=== PATIENT | female | born 1945 | race Caucasian/White ===

== ENCOUNTER 2016-11-20 05:41 | Day surgery (SDC) | payer BC, MEDICARE ==
[~2016-11-20] VITALS: Ht 162.6 cm; Wt 36.9 kg
[~2016-11-20 05:41] MED LIST: ACETAMINOPHEN500 M1 PO; COMBIVENT RESPIM4 GM INH; INSULIN PEN SC; K-TAB10 MEQ PO; LANTUS SOL100 UNIT/1; LANTUS SOL100 UNIT/1 SC; LOPRESSOR50 MG PO; LOTENSIN20 MG PO; NOVOLOG100 U/M1 SC; PLAVIX75 MG PO; PRILOSEC20 MG PO; REMERON15 MG PO; TOPROL XL50 MG PO; TYLENOL W/CODEI1 TAB PO; ULTRAM50 MG; XANAX0.5 MG PO; ZANAFLEX2 M1 PO; ZENPEP DR 20,01 EACH PO
[2016-11-20 06:47] LABS: BASOPHILS 0.4 % (0.0-2.0); EOSINOPHILS 0.2 % (0-7); HEMATOCRIT 36.8 % (36.0-48.0); HEMOGLOBIN 11.6 g/dL (12-16); IMMATURE GRANULOCYTES 0.2 % (0-5); LYMPHOCYTES 24.9 % (15-50); MCH 29.2 pg (26.0-34.0); MCHC 31.5 g/dL (31.0-37.0); MCV 92.7 fL (80.0-100.0); MEAN PLATELET VOLUME 10.4 fL (7.4-10.4); MONOCYTES 5.2 % (2-11); NEUTROPHILS 69.1 % (40-80); PLATELET COUNT 253 10x3/uL (130-400); RBC 3.97 10x6/uL (4.00-5.40); RDW 13.8 % (11.5-14.5)
[2016-11-20 06:54] LABS: ANION GAP 9.9 mmol/L (8-16); CALCIUM 9.1 mg/dL (8.5-10.1); CARBON DIOXIDE 32.7 mmol/L (21.0-32.0); CREATININE - SERUM 0.9 mg/dL (0.6-1.3); POTASSIUM - SERUM 3.6 mmol/L (3.5-5.1)
[2016-11-20 06:59] LABS: APTT 31.4 SECONDS (22.8-39.4); INR 1.08 (0.85-1.17); PROTIME 13.9 SECONDS (11.6-15.0)
[2016-11-20 07:43] VITALS: BP 122/69; Ht 162.6 cm; Wt 36.9 kg
--- NOTE | 2016-11-20 09:08 | NUR ---
PATIENT POSITIONED ON STRETCHER, ALL SAFETY MEASURES TAKEN AT ALL TIMES. NO PREP, NO COUNT RELATED TO COLONOSCOPY. BOVIE PAD X2 TO RIGHT THIGH LOT#[id number] EXP DATE: 09/09/2018
--- NOTE | 2016-11-20 12:09 | NUR ---
1205--IJ IV DC'D, FIRM PRESSURE APPLIED FOR 5 MINUTES. PT UP GETTIG DRESSED. HGRAVES RN
--- NOTE | 2016-11-20 12:12 | NUR ---
1215--DISCHARGE INSTRUCTIONS GIVEN, PT VERBALIZES UNDERSTANDING. PT OFF UNIT VIA GAIL. HOUSTON RICHARDSON
--- NOTE | 2016-11-29 09:40 | HP ---
PATIENT: LAWRENCE HUGHES MEDICAL RECORD: [id number] ACCOUNT: [id number] LOCATION:[facility] : 43 ADMISSION DATE: 11/20/16 HISTORY AND PHYSICAL EXAMINATION CHIEF COMPLAINT: Complex colon polyp. HISTORY OF PRESENT ILLNESS: The patient is here for colonoscopy with polypectomy utilizing the argon plasma logistic specialist, which is a radiofrequency type of ablation of a benign colonic process. The risks, possible complications and alternatives to procedure were explained to the patient. She elects to proceed. The discussion specifically included, but was not limited to, bleeding requiring emergency reoperation, infection and endoscopic perforation. I have reviewed my operative note. On 11/07/2015, the patient underwent colonoscopy with the argon plasma logistic specialist. The patient underwent hot biopsy forcep polypectomies times 7. There was significant regrowth of a sigmoid colon polyp. There was 1 flat polyp that could only be seen by narrow-band imaging. This was removed utilizing a hot biopsy forceps polypectomy technique. There was a worrisome polyp in the sigmoid colon, which was a 2.5-cm polyp. On my dictation, it is listed as a 2.5-mm polyp, but instead, this should have been a 2.5-cm polyp. It was behind a fold. I have personally reviewed the pathology report. 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 There were several other tubular adenomas. The sigmoid colon polyps were tubular adenomas. ALLERGIES: DIAZEPAM WELL HYDROCODONE. HOME MEDICATIONS: Prilosec, Plavix, ipratropium, insulin, metoprolol, Xanax, lipase/amylase/protease. SOCIAL HISTORY: She is a significant smoker. She has a 206-bmam-dibu history. PAST MEDICAL AND SURGICAL HISTORY: She wears oxygen at night, bronchitis, COPD, hypertension, Erevp-Emhyghqgp-Qnjzm arrhythmia, TIA in 2001, insulin-dependent diabetes mellitus, hiatal hernia, gastroesophageal reflux which is medication controlled, osteoarthritis. REVIEW OF SYSTEMS: No nausea, no vomiting, no fever, no chills. Positive for shortness of breath. Positive for productive cough. No chest pain. PHYSICAL EXAMINATION: GENERAL: The patient does not appear acutely ill. She does appear chronically ill. VITAL SIGNS: Reviewed. HEAD: External ears appear normal. EYES: Extraocular movements are intact. NECK: Trachea is midline. CHEST: No intercostal retractions. PULMONARY: Nonlabored. No stridor. Some rhonchi. ABDOMEN: Nontender. EXTREMITIES: No peripheral cyanosis. INTEGUMENT: She does have some extremity pallor. HISTORY AND PHYSICAL [id number] WHITE,LAWRENCE IMPRESSION: Multiple polyps including a complex polyp in the sigmoid colon, which was a 2.5-cm polyp. Pathologically, this was a tubular adenoma. PLAN: Colonoscopy with polypectomy utilizing argon plasma logistic specialist. TRANSINT:[id number] Voice Confirmation ID: [id number] DOCUMENT ID: [id number] CC: PENELOPE Johnson, not located. MOSES GARCIA MD at 0940 CC: BRANDIE BERMEO MD and ANASTACIO RALPH MD [id number] DICTATION DATE: 11/20/16919 CHORE TENDER: 11/20/16 1009 [facility] 11/20/16 [facility] [address] [place] [address]
--- NOTE | 2016-11-29 09:40 | OP ---
PATIENT NAME: LAWRENCE HUGHES MEDICAL RECORD: [id number] :43 LOCATION:[facility] ADMISSION DATE: SURGEON: MOSES GARCIA MD DATE OF OPERATION: 11/20/2016 PREOPERATIVE DIAGNOSIS: History of multiple complex polyps including regrowth of a sigmoid colon polyp. POSTOPERATIVE DIAGNOSES: 1. An 8 new colon polyps. 2. Regrowth of the sigmoid colon polyp, which was removed utilizing the argon plasma last putter away and was tattooed. PROCEDURES: 1. Total colonoscopy to cecum. 2. Hot biopsy forceps polypectomies times 8. 3. Polypectomy of the polypoid regrowth in the sigmoid colon and then treated with the argon plasma last putter away, which is a radiofrequency type of ablation of a benign colonic process and then tattooing of the lesion. SURGEON: Moses Garcia MD CREW TEAM MEMBER: None. BLOOD LOSS: Minimal. ANESTHESIA: General. COMPLICATIONS: None. The risks, possible complications and alternatives to procedure were explained to the patient. She elects to proceed. OPERATIVE COURSE: The patient was conveyed to the operating room electively on 11/20/2016. General anesthesia was induced by the anesthesia staff. The patient was placed in the Rivers position. A digital rectal examination was performed. The colonoscope was inserted through the anus. It was easily advanced to the cecum. The prep was excellent. I slowly withdrew the endoscope. There was a cecal polyp, which was a flat polyp which was most easily seen with the narrow band imaging technique. I dragged the folds. The pullback was greater than an 18-minute pullback. Multiple hot biopsy forceps polypectomies were performed at the site of sessile polyps which ranged in size from 5 mm-1.2 cm. One of these had some regrowth within a scar and was retreated with the hot biopsy forceps polypectomy technique. Regrowth of the polyp in the sigmoid colon was noted This was biopsied. I then ablated the polyp with the argon plasma last putter away. It was on and behind a fold. In order to better identify this polyp in the future, I plan for tattooing the polyp. I advanced a sclerotherapy needle. I then injected at the side of the base of the polyp a 3 cc of Linsey ink submucosally. I withdrew the sclerotherapy needle. I then withdrew into the rectum. After retroflexion, I unretroflexed the scope and removed it under direct vision. I will see the patient in my office in 2-3 weeks. I will plan for a re-colonoscopy with the argon plasma last putter away in 1 year. OPERATIVE REPORT [id number] LAWRENCE HUGHES TRANSINT:[id number] Voice Confirmation ID: [id number] DOCUMENT ID: [id number] MOSES GARCIA MD at 0940 CC: BRANDIE BERMEO MD, ANASTACIO RALPH MD and EULA TIJERINA MD [id number] DICTATION DATE: 11/20/16 1044 AVIATION NEUROPSYCHOLOGIST: 11/20/16 1113 [facility] [place] 11/20/16 [facility] [address] [place] [address]
== END 2016-11-20 12:15 | disposition home or self-care (01) ==
LOC: D.OPS 05:41 → D.PAN 10:15 → D.OPS 10:15
PROVIDERS: Anesthesiology
DX: D12.2 Benign neoplasm of ascending colon (principal); D12.0 Benign neoplasm of cecum; D12.5 Benign neoplasm of sigmoid colon; D12.4 Benign neoplasm of descending colon; K63.5 Polyp of colon; F17.210 Nicotine dependence, cigarettes, uncomplicated; J44.9 Chronic obstructive pulmonary disease, unspecified; I45.6 Pre-excitation syndrome; Z86.73 Personal history of transient ischemic attack (TIA), and cerebral infarction without residual deficits; E11.9 Type 2 diabetes mellitus without complications; K44.9 Diaphragmatic hernia without obstruction or gangrene; K21.9 Gastro-esophageal reflux disease without esophagitis; M19.90 Unspecified osteoarthritis, unspecified site; Z79.4 Long term (current) use of insulin; Z99.81 Dependence on supplemental oxygen; Z79.02 Long term (current) use of antithrombotics/antiplatelets; Z79.899 Other long term (current) drug therapy; Z88.5 Allergy status to narcotic agent